=== PATIENT | male | born 1950 | race Caucasian/White ===

== ENCOUNTER 2025-04-29 12:54 | Emergency (ER) | payer OTHER, SELFPAY ==
[2025-04-29 13:05] VITALS: BP 130/93; PULSE 75; RESP 20; TEMP 36.8; O2SAT 95
[2025-04-29 13:20] VITALS: BP 130/93; BP 130/96; PULSE 75; PULSE 85; RESP 18; TEMP 36.8; O2SAT 95; O2SAT 96; BMI 28.3
--- NOTE | 2025-04-29 13:46 | PC.NURSE ---
Use Doppler and cuff to calculate the MAP, with provider at bedside. MAP was 125.
--- NOTE | 2025-04-29 14:05 | ED_ITS ---
HPI - General Adult General Chief complaint: General Medical Stated complaint: HIGH MAP PER [facility] PER EMS Time Seen by Provider: 04/29/25 13:03 Source: patient Mode of arrival: EMS Limitations: no limitations History of Present Illness ED Provider: Dr. Juan A Nye HPI narrative: 74-year-old male with a history of osteochondromatosis, hypertension, asthma, COPD, congestive heart failure with LVAD placed in [place] who was living in this area to be closer to his son and his LVAD is managed at [facility] who presents emergency department for an elevated MAP of 140. Patient states that he became ill on 04/19/2025 with shortness of breath, chest heaviness, cough and fever. He was admitted at [facility] and diagnosed with a viral infection ( Human metavirus). While he was hospitalized, he may not have been getting his blood pressure medicines. Patient was not discharged on antibiotics but was treated and discharged on prednisone. He states that prednisone interfered with his sleep and he had a restless night. This morning he woke up dizzy and fatigued. Visiting nurse checked his MAP 3 times and it was 140 (normal map is 60-90 with LVAD). Visiting nurse reached out to the LVAD hotline and was advised to send the patient to [facility]. Patient however told the paramedics that he was being treated at [facility] and was brought here instead. In the ED he is complaining of fatigued but has no other complaints. At the time my evaluation, the patient denied headache, lightheadedness, dizziness, chest pain or shortness of breath. Patient's MAP obtained by manual cuff and Doppler in the emergency department was 125. The patient states that he is not a transplant candidate. Patient's point of care INR at home was 2.2. Related Data Allergies Allergy/AdvReac Type Severity Reaction Status Date / Time No Known Allergies Allergy Verified 04/29/25 13:43 [No Known Allergies*] Review of Systems Review of Systems: Yes all other systems are reviewed and are negative [facility] Past Medical History [facility] Narrative: Social history: The patient is from the [facility] area but he is currently living with his son who is in his area. Physical Exam ED Vital Signs: Vital Signs - 24 hr 04/29/25 13:05 04/29/25 13:20 Temperature 98.3 F 98.3 F Pulse Rate 75 75 Respiratory Rate 20 18 Blood Pressure 130/93 H 130/93 H Pulse Oximetry 95 95 Oxygen Delivery Method Room Air Room Air BMI result Body Mass Index 28.3 I obtained a map using a Doppler on this patient , map was 125 Exam: General: Awake, alert in no distress Head: Normocephalic, atraumatic EENT: PERRL, Lids normal, sclera normal, conjunctiva normal, nose normal , ears normal, throat without erythema or exudates Neck: Supple, no adenopathy Lung: breath sounds symmetric Chest: symmetric movement, nontender Heart: Mechanical sounds consistent with LVAD Abdomen: soft, non-tender, nondistended, normal bowel sounds Extremities: no deformities, moves all extremities symmetrically Neuro: Awake, alert, oriented, normal speech, moves all extremities symmetrically Psych: Pleasant, cooperative Medical Decision Making Medical Decision Making MDM Narrative: 74-year-old male with a history of osteochondromatosis, hypertension, asthma, COPD, congestive heart failure with LVAD placed in [place] who was living in this area to be closer to his son and his LVAD is managed at [facility] who presents emergency department for an elevated MAP of 140. Patient states that he became ill on 04/19/2025 with shortness of breath, chest heaviness, cough and fever. He was admitted at [facility] and diagnosed with a viral infection ( Human metavirus). While he was hospitalized, he may not have been getting his blood pressure medicines. Patient was not discharged on antibiotics but was treated and discharged on prednisone. He states that prednisone interfered with his sleep and he had a restless night. This morning he woke up dizzy and fatigued. Visiting nurse checked his MAP 3 times and it was 140 (normal map is 60-90 with LVAD). Visiting nurse reached out to the LVAD hotline and was advised to send the patient to [facility]. Patient however told the paramedics that he was being treated at [facility] and was brought here instead. In the ED he is complaining of fatigued but has no other complaints. At the time my evaluation, the patient denied headache, lightheadedness, dizziness, chest pain or shortness of breath. Patient's MAP obtained by manual cuff and Doppler in the emergency department was 125. Physical examination was unremarkable. Differential diagnosis: ?Includes but is not limited to elevated map, hypertensive crisis, hypertensive urgency, LVAD malfunction Course: 14:40 I obtained a MAP on this patient using a manual BP Cuff and Doppler of 125 which is significantly elevated. The patient took a dose of valsartan 80 mg last night. This morning he took valsartan 80 mg, spironolactone 25 mg and metoprolol ER 50 mg orally. I did discuss the patient's presentation with the doctor covering the LVAD service, Dr. Irma Monet. She was concerned about his elevated MAP. She recommended giving him valsartan 80 mg orally and hydral azine 25 mg orally and these were ordered and given in the emergency department. She felt that if the patient's blood pressure improves possible the patient could be discharged home but also she stated that the LVAD should be interrogated. The patient did not hear any alarms coming from his LVAD last night or this morning. I did discuss transfer with the Emergency Department attending physician, Dr. Meza at [facility] Emergency Department and he did accept the patient as an ED to ED transfer. Admission/Observation Consideration of admission/observation: Escalation of care including admission/observation considered (No) Chronic Conditions Patient?s care impacted by: Hypertension and Other (LVAD) Discharge Plan Discharge Clinical Impression: Dizziness, Fatigue, Left ventricular assist device present, Elevated blood pressure reading Patient Disposition: [facility] Transfer Details: ED to ED transfer to [facility], accepting physician Dr. Meza Print Language: Maori
--- NOTE | 2025-04-29 14:22 | PC.NURSE ---
Pharmacy notified for medication.
--- NOTE | 2025-04-29 14:53 | PC.NURSE ---
Phoned pharmacy a second time, still awaiting medication for pt.
[2025-04-29 14:56] VITALS: BP 126/76
[2025-04-29] MEDS: Valsartan 80 MG TABLET PO (14:56)
[2025-04-29 15:07] VITALS: BP 126/76; PULSE 72; RESP 18; TEMP 36.7; O2SAT 95
[2025-04-29 15:09] VITALS: BP 126/76; PULSE 72; RESP 18; TEMP 36.7; O2SAT 95
--- NOTE | 2025-04-29 15:19 | PC.NURSE ---
Attempted report x 3, no answer, phone just kept ringing.
== END 2025-04-29 15:20 | disposition short-term general hospital (02) ==
PROVIDERS: Emergency Provider Emergency Medicine Emergency Medical Services; PCP Internal Medicine
DX: R42 Dizziness and giddiness (principal); R53.83 Other fatigue; R03.0 Elevated blood-pressure reading, without diagnosis of hypertension; I50.9 Heart failure, unspecified; I11.0 Hypertensive heart disease with heart failure; J44.9 Chronic obstructive pulmonary disease, unspecified; D16.9 Benign neoplasm of bone and articular cartilage, unspecified; Z95.811 Presence of heart assist device
CPT/HCPCS: 99285